=== PATIENT | female | born 1955 | race Caucasian/White ===

== ENCOUNTER → 2016-11-22 | Outpatient (CLI) | payer BC ==
[~2016-11-22] MED LIST: ATEN-51; FENO150C2 PO; MEVA40; NAPR500T8 PO
--- NOTE | 2016-11-22 18:00 | RADRPT ---
PROCEDURE: US Pelvis. CLINICAL INDICATION: Pelvic pain. Post menopausal. Right lower quadrant pain. TECHNIQUE: The pelvis was evaluated with transabdominal and transvaginal sonography in the axial a nd sagittal planes. COMPARISON: No prior study is available for comparison. FINDINGS: Uterus: 6.7 x 3.0 x 3.7 cm. Endometrium: Fluid is present in the endometrial canal measuring approximately 0.4 cm in thickness a nd 3.4 cm in length. Endometrial thickness is otherwise normal measuring 2 mm. Right ovary: 2.1 x 1.4 x 1.5 cm. Left ovary: Not visualized. Uterine masses: None. Ovarian masses: The right ovary is normal. The left ovary is not visualized. Color Doppler and puls ed Doppler sonography demonstrate normal flow to the right ovary. Other pelvic masses: None. Free fluid: None. IMPRESSION: 1. Fluid in the endometrial canal, nonspecific. Follow-up advised. 2. Normal endometrial thickness. 3. Left ovary not visualized. 4. Otherwise normal pelvic ultrasound. RPTAT: QQ .Jacob Kuhn MD, Date Time Electronically viewed and signed by .Jacob Kuhn MD, on 11/22/2016 18:00 .R/
== END | disposition home or self-care (01) ==
LOC: U/S 15:42
PROVIDERS: ATTEND Obstetrics & Gynecology
DX: R10.31 Right lower quadrant pain (principal)
CPT/HCPCS: 76830; 76856

== ENCOUNTER → 2017-09-01 | Outpatient (CLI) | END | disposition home or self-care (01) ==

== ENCOUNTER → 2017-09-18 | Outpatient (CLI) | END | disposition home or self-care (01) ==

== ENCOUNTER → 2018-09-12 | Outpatient (CLI) | payer BC | END | disposition home or self-care (01) | LOC: LAB 07:05 | PROVIDERS: ATTEND Internal Medicine | DX: E11.9 Type 2 diabetes mellitus without complications (principal); I10 Essential (primary) hypertension; E78.00 Pure hypercholesterolemia, unspecified; E03.9 Hypothyroidism, unspecified | CPT/HCPCS: 80053; 80061; 83036; 84439; 84443; 85025 ==

== ENCOUNTER → 2019-01-15 | Outpatient (CLI) | payer BC | END | disposition home or self-care (01) | LOC: EEVIPCON 06:17 → LAB 06:17 | PROVIDERS: ATTEND Internal Medicine | DX: R06.02 Shortness of breath (principal); E03.9 Hypothyroidism, unspecified | CPT/HCPCS: 80053; 84439; 84443; 85025 ==

== ENCOUNTER → 2019-04-16 | Outpatient (CLI) | payer BC | END | disposition home or self-care (01) | LOC: LAB 06:20 | PROVIDERS: ATTEND Internal Medicine | DX: E11.9 Type 2 diabetes mellitus without complications (principal); E03.9 Hypothyroidism, unspecified; E78.5 Hyperlipidemia, unspecified | CPT/HCPCS: 80053; 80061; 83036; 84439; 84443; 85025 ==